=== PATIENT | female | born 1990 | race Caucasian/White ===

== ENCOUNTER → 2018-04-08 | Emergency (ER) | payer OTHER ==
[~2018-04-08] VITALS: Ht 172.7 cm; Wt 78.0 kg
== END | disposition home or self-care (01) ==
LOC: ER 18:41
DX: O21.0 Mild hyperemesis gravidarum (principal); K21.9 Gastro-esophageal reflux disease without esophagitis; Z34.81 Encounter for supervision of other normal pregnancy, first trimester

== ENCOUNTER → 2018-05-27 | Emergency (ER) | payer OTHER ==
[~2018-05-27] VITALS: Ht 175.3 cm; Wt 83.9 kg
== END | disposition home or self-care (01) ==
LOC: ER 21:45
DX: O26.892 Other specified pregnancy related conditions, second trimester (principal); R10.32 Left lower quadrant pain; Z34.82 Encounter for supervision of other normal pregnancy, second trimester

== ENCOUNTER 2018-11-10 13:24 | Inpatient (IN) | payer OTHER ==
[~2018-11-10] VITALS: Ht 175.3 cm; Wt 99.8 kg
[2018-11-10] MEDS ORDERED: IRON325 MG PO (13:52)
[2018-11-10] MEDS ORDERED: OBSTETRIX ONE1 EACH PO (13:52)
== END 2018-11-17 16:19 | disposition home or self-care (01) | DRG 788 ==
LOC: O/R 11-14 06:00 → OB/GYN 11-14 10:21
PROVIDERS: ADMIT Obstetrics & Gynecology
PROC: 4A1HXCZ Monitoring of Products of Conception, Cardiac Rate, External Approach (ICD-10-PCS; 2018-11-14)
PROC: 10D00Z1 Extraction of Products of Conception, Low, Open Approach (ICD-10-PCS; principal; 2018-11-14 10:15)
DX: O82 Encounter for cesarean delivery without indication (principal); Z3A.38 38 weeks gestation of pregnancy; Z37.0 Single live birth

== ENCOUNTER 2019-04-22 19:48 | Emergency (ER) | payer OTHER ==
[~2019-04-22] VITALS: Ht 175.3 cm; Wt 90.7 kg
[~2019-04-22 19:48] MED LIST: IRON325 MG PO; OBSTETRIX ONE1 EACH PO
[2019-04-22] MEDS ORDERED: PANADOL EXTRA500 MG (20:10)
== END 2019-04-23 00:12 | disposition home or self-care (01) ==
LOC: ER 19:48
DX: S60.221A Contusion of right hand, initial encounter (principal); W22.8XXA Striking against or struck by other objects, initial encounter; Y93.89 Activity, other specified; Y92.89 Other specified places as the place of occurrence of the external cause; Y99.8 Other external cause status

== ENCOUNTER 2019-10-04 22:29 | Emergency (ER) | payer OTHER ==
[~2019-10-04] VITALS: Ht 175.3 cm; Wt 81.6 kg
[~2019-10-04 22:29] MED LIST changes: +PANADOL EXTRA500 MG
[2019-10-05] MEDS ORDERED: INTESTINEX680 M1 PO (02:02)
[2019-10-05] MEDS ORDERED: PEPCID40 MG PO (02:02)
[2019-10-05] MEDS ORDERED: ZOFRAN4 MG PO (02:02)
== END 2019-10-05 02:09 | disposition home or self-care (01) ==
LOC: ER 22:29
DX: K52.9 Noninfective gastroenteritis and colitis, unspecified (principal)

== ENCOUNTER 2019-11-21 13:11 | Outpatient (CLI) | payer OTHER ==
[~2019-11-21 13:11] MED LIST changes: +INTESTINEX680 M1 PO; +PEPCID40 MG PO; +ZOFRAN4 MG PO
== END 2019-11-21 13:17 | disposition home or self-care (01) ==
LOC: SONOGRAMA 13:11
DX: N64.4 Mastodynia (principal)